=== PATIENT | female | born 1955 | race Two or more races ===

== ENCOUNTER 2018-03-20 12:02 | Emergency (ER) | payer OTHER ==
[2018-03-20] MEDS: HYDROCODONE/APAP (5/325) TAB PO (12:40)
== END 2018-03-20 14:26 | disposition home or self-care (01) ==
LOC: E/R 12:02
DX: S89.91XA Unspecified injury of right lower leg, initial encounter (principal); W01.0XXA Fall on same level from slipping, tripping and stumbling without subsequent striking against object, initial encounter; Y92.009 Unspecified place in unspecified non-institutional (private) residence as the place of occurrence of the external cause
CPT/HCPCS: 73510; 73550; 99283-25